=== PATIENT | male | born 1985 | race Caucasian/White ===

== ENCOUNTER 2020-12-25 12:50 | Emergency (ER) | payer OTHER ==
--- OUTSIDE RECORDS SUMMARY | 2020-12-25 12:52 | XMS REPORT | Continuity of Care Document ---
:1985 Author Organization [facility] t Address 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 Social History Social Habit Start Date Stop Date Quantity Comments Source Cigarettes smoked 2018-02-18 2018-02-18 Chaka Pinedo current (pack per 00:00:00 00:00:00 day) - Reported Tobacco use and 2018-02-18 2018-02-18 Never used [facility] ethodist exposure 00:00:00 00:00:00 Alcohol intake 2018-02-18 2018-02-18 Current drinker [place] [facility] 00:00:00 00:00:00 of alcohol (finding) Alcohol Comment 2018-02-18 2018-02-18 socially [facility] ethodist 00:00:00 00:00:00 Sex [birth year] [facility] ethodist 00:00:00 00:00:00 Smoking Status Start Date Stop Date Source Current every day smoker 2018-02-18 00:00:00 Madisyn Pinedo Medications Ordered Filled Start Stop Current Ordering Indication Dosage Frequency Signature Comments Components Source Medication Medication Date Date Medication? Clinician (SIG) Name Name ALPRAZolam Yes TK 1 T PO Richard braun (XANAX) 0.5 5-03 BID. [facility] MG tablet 00:00: st 00 eszopiclone Yes TK 1 T PO [place] (LUNESTA) 3 5-03 QD [facility] mg tablet 00:00: IMMEDIATEL st 00 Y BEFORE BEDTIME. ibuprofen Yes TK 1 T Albertina acosta (ADVIL,MOTR 5-03 WITH FOOD Met rochellei IN) 800 MG 00:00: OR MILK st tablet 00 TID PRN PARoxetine Yes TK 1 T PO Richard braun (PAXIL) 10 4-11 D [facility] MG tablet 00:00: st 00 Procedures This patient has no known procedures. Plan of Care Planned Activity Planned Date Details Comments Source Future Scheduled 2020-04-22 INFLUENZA VACCINE Albertina acosta [facility] Test 00:00:00 [code = INFLUENZA VACCINE] Future Scheduled 2002 Hepatitis C Null Met [facility] Test 00:00:00 screening (procedure) [code = 643181797] Future Scheduled 2000 COVID-19 VACCINE (1) Madisyn rodriguez [facility] Test 00:00:00 [code = COVID-19 VACCINE (1)] Encounters Start End Encounter Admission Attending Care Care Encounter Source Date/Time Date/Time Type Type Clinicians Facility Department ID 2020-12-12 2020-12-12 [facility] Radiology [facility] [id number] 14:34:43 23:59:00 Encounter [place] [id number] [place] [id number] [place] [id number] 2020-01-20 2020-01-20 [facility] Radiology [facility] [id number] 08:38:00 23:59:00 Encounter [place] [id number] [place] [id number] [place] [id number] Results This patient has no known results.
[2020-12-25 16:43] LABS: Absolute Lymphocytes (CBC) 1.2 K/uL (0.7-4.9); Basophils % 0.3 % (0-1.3); Hematocrit 39.4 % (39.6-49.0); Lymphocytes % 11.1 % (15.3-44.8); MPV 9.7 fL (7.6-11.3); RBC Red Blood Cell Count 4.44 M/uL (4.33-5.43)
[2020-12-25] MEDS ORDERED: LIDOCAINE VISCOUS 2% SOLN 15 ML UDC ONE ×2 (16:46→17:55)
[2020-12-25] MEDS ORDERED: MAGNES/ALUMIN/SIMET 30ML UCUP ONE ×2 (16:46→17:54)
[2020-12-25 16:56] LABS: ALT/SGPT 16 U/L (12-78); AST/SGOT 8 U/L (15-37); Albumin 3.4 g/dL (3.4-5.0); Alkaline Phosphatase 82 U/L (45-117); BUN Blood Urea Nitrogen 8 mg/dL (7-18); Bicarbonate 29 mmol/L (21-32); Bilirubin Direct 0.1 mg/dL (0-0.2); Bilirubin Total 0.4 mg/dL (0.2-1.0); Glucose Level 93 mg/dL (74-106); Lipase 49 U/L (73-393); Potassium 4.1 mmol/L (3.5-5.1); Protein, Total 6.6 g/dL (6.4-8.2); Sodium Level 142 mmol/L (136-145)
--- NOTE | 2020-12-25 17:05 | RAD REPORT ---
EXAM DESCRIPTION: CTAbdomen Pelvis W Contrast - 12/25/2020 4:39 pm CLINICAL HISTORY: Abdominal pain. ABD PAIN COMPARISON: No comparisons TECHNIQUE: Biphasic CT imaging of the abdomen and pelvis was performed with 100 ml non-ionic IV cont rast. All CT scans are performed using dose optimization technique as appropriate and may include automated exposure control or mA/KV adjustment according to patient size. FINDINGS: The lung bases are clear. The liver, spleen, pancreas, adrenal glands and kidneys are within normal limits. No bowel obstruction, free air, free fluid or abscess. Mucosal thickening is seen involving the colon suggesting possible colitis. The appendix is not identified as a discrete structure, however, no sec ondary findings of appendicitis are identified. No evidence of significant lymphadenopathy. No suspicious bony findings. IMPRESSION: Mild to moderate colitis pattern is seen.
--- NOTE | 2020-12-25 17:17 | ER ---
Nurse's Notes [facility] Name: Hany Posey Age: 35 yrs Sex: Male : 1985 Arrival Date: 12/25/2020 Time: 12:53 Bed 18 Private MD: Gurpreet Perera T Diagnosis: Infectious gastroenteritis and colitis, unspecified Presentation: 12/25 13:06 Chief complaint: Patient states: Epigastric pain since Friday. Some nausea. Had to ll1 leave work early today, he just didn't feel good enough to work. No fever. Coronavirus screen: Client denies travel out of the [place] in the last 14 days. At this time, the client does not indicate any symptoms associated with coronavirus-19. Ebola Screen: Patient denies travel to an Ebola-affected area in the 21 days before illness onset. Initial Sepsis Screen: Does the patient meet any 2 criteria? No. Patient's initial sepsis screen is negative. Does the patient have a suspected source of infection? Yes: Acute abdominal pain. Risk Assessment: Do you want to hurt yourself or someone else? Patient reports no desire to harm self or others. Onset of symptoms was December 23, 2020. 13:06 Method Of Arrival: Ambulatory ll1 13:06 Acuity: MICHAELA 3 ll1 Triage Assessment: 19:08 General: Appears in no apparent distress. Behavior is calm, cooperative, appropriate bw for age. Historical: - Allergies: 13:09 No Known Allergies; ll1 - PMHx: 13:09 [facility]; ll1 - PSHx: 13:09 shoulder sx; ll1 - Immunization history:: Flu vaccine is not up to date. - Social history:: Smoking status: Patient reports the use of cigarette tobacco products, smokes one-half pack cigarettes per day. - Family history:: not pertinent. - Hospitalizations: : No recent hospitalization is reported. Screenin:14 Abuse screen: Denies threats or abuse. Nutritional screening: No deficits noted. bw Tuberculosis screening: No symptoms or risk factors identified. Fall Risk None identified. Assessment: 16:12 Pain: Complains of pain in abdomen. Neuro: No deficits noted. Cardiovascular: No bw deficits noted. Respiratory: No deficits noted. GI: Bowel sounds present X 4 quads. Abd is soft and non tender X 4 quads. : No deficits noted. EENT: No deficits noted. Derm: No deficits noted. Musculoskeletal: No deficits noted. 18:02 Reassessment: DC pending IV medication administration. bw 18:56 Reassessment: Patient appears in no apparent distress at this time. Patient and/or bw family updated on plan of care and expected duration. Pain level reassessed. Patient is alert, oriented x 3, equal unlabored respirations, skin warm/dry/pink. Vital Signs: 13:06 BP 144 / 84; Pulse 76; Resp 17; Temp 98.3; Pulse Ox 98% ; Weight 81.65 kg; Height 6 ft. ll1 3 in. (190.50 cm); Pain 6/10; 16:14 BP 134 / 85; Pulse 70; Resp 18; Pulse Ox 99% on R/A; bw 18:02 BP 132 / 89; Pulse 74; Resp 18; Pulse Ox 99% on R/A; bw 13:06 Body Mass Index 22.50 (81.65 kg, 190.50 cm) ll1 ED Course: 12:53 Patient arrived in ED. mr 13:03 Gurpreet Perera MD is Private Physician. mr 13:08 Triage completed. ll1 13:09 Arm band placed on Patient notified of wait time. ll1 15:56 Israel Carson MD is Attending Physician. rn 16:12 Patricia Ortiz RN is Primary Nurse. bw 16:14 Patient has correct armband on for positive identification. Bed in low position. Call bw light in reach. Side rails up X 1. Pulse ox on. NIBP on. Warm blanket given. 16:14 No provider procedures requiring assistance completed. bw 16:38 CT Abd/Pelvis - IV Contrast Only In Process Unspecified. EDMS 17:16 Matthias Sullivan MD is Referral Physician. rn 18:02 Inserted saline lock: 20 gauge in right antecubital area, using aseptic technique. bw 19:07 IV discontinued. bw Administered Medications: 17:45 Drug: Cipro (ciprofloxacin) 400 mg Volume: 200 ml; Route: IVPB; Infused Over: 60 mins; iw Site: right antecubital; 18:46 Follow up: Response: No adverse reaction; IV Status: Completed infusion; IV Intake: sv 200ml 17:45 Drug: Flagyl 500 mg Volume: 100 ml; Route: IVPB; Rate: 200 ml/hr; Infused Over: 30 iw mins; Site: right antecubital; 18:46 Follow up: Response: No adverse reaction; IV Status: Completed infusion; IV Intake: sv 100ml 17:55 Drug: GI Cocktail without - (Maalox Suspension 30 ml, Lidocaine Liquid 2 % 15 bw ml) Route: PO; Intake: 18:46 IV: 100ml; Total: 100ml. sv 18:46 IV: 200ml; Total: 300ml. sv Outcome: 17:16 Discharge ordered by . rn 19:07 Discharged to home ambulatory. 19:07 Condition: stable 19:07 Discharge instructions given to patient, Prescriptions given X 4. 19:08 Patient left the ED. Signatures: Dispatcher [employer] EDBrigid Casas, RN RN Onelia Wall Irene RN ANDREY Israel Carson MD MD rn Lewis, Lynsay, RN RN [facility] Patricia Ortiz RN RN
--- NOTE | 2020-12-25 17:17 | EDPHYS ---
Physician Documentation [facility] Name: Hany Posey Age: 35 yrs Sex: Male : 1985 Arrival Date: 12/25/2020 Time: 12:53 Bed 18 Private MD: Gurpreet Perera T ED Physician Israel Carson HPI: 12/25 16:08 This 35 yrs old Male presents to ER via Ambulatory with complaints of rn Abdominal Pain. 16:08 The patient presents with abdominal pain in the epigastric area. Onset: The rn symptoms/episode began/occurred 2 day(s) ago. The symptoms do not radiate. Associated signs and symptoms: Pertinent positives: nausea, Pertinent negatives: anorexia, blood in stools, diarrhea, dysuria, fever, shortness of breath, testicular pain, vomiting, vomiting blood. The symptoms are described as achy, crampy. Modifying factors: The symptoms are alleviated by nothing, the symptoms are aggravated by touching the area. Severity of pain: At its worst the pain was moderate in the emergency department the pain has improved. The patient has not experienced similar symptoms in the past. The patient has not recently seen a physician. 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 - Social history:: Smoking status: Patient reports the use of cigarette tobacco products, smokes one-half pack cigarettes per day. - Family history:: not pertinent. - Hospitalizations: : No recent hospitalization is reported. ROS: 16:08 Constitutional: Negative for fever, chills, and weight loss, Eyes: Negative for injury, rn pain, redness, and discharge, Neck: Negative for injury, pain, and swelling, Cardiovascular: Negative for chest pain, palpitations, and edema, Respiratory: Negative for shortness of breath, cough, wheezing, and pleuritic chest pain, Abdomen/GI: + abd pain and nausea Back: Negative for injury and pain, MS/Extremity: Negative for injury and deformity, Skin: Negative for injury, rash, and discoloration, Neuro: Negative for headache, weakness, numbness, tingling, and seizure. 16:08 All other systems are negative. Exam: 16:08 Constitutional: This is a well developed, well nourished patient who is awake, alert, rn and in no acute distress. Head/Face: Normocephalic, atraumatic. Eyes: Conjunctiva and sclera are non-icteric and not injected.Periorbital areas with no swelling, redness, or edema. Cardiovascular: Regular rate and rhythm. No pulse deficits. Respiratory: No increased work of breathing, no retractions or nasal flaring. Abdomen/GI: soft, + epigastric tenderness, no rebound, neg rodriguez Skin: Warm, dry MS/ Extremity: Pulses equal, no cyanosis. Neuro: Awake and alert, GCS 15 Vital Signs: 13:06 BP 144 / 84; Pulse 76; Resp 17; Temp 98.3; Pulse Ox 98% ; Weight 81.65 kg; Height 6 ft. ll1 3 in. (190.50 cm); Pain 6/10; 16:14 BP 134 / 85; Pulse 70; Resp 18; Pulse Ox 99% on R/A; bw 18:02 BP 132 / 89; Pulse 74; Resp 18; Pulse Ox 99% on R/A; bw 13:06 Body Mass Index 22.50 (81.65 kg, 190.50 cm) ll1 MDM: 15:56 Patient medically screened. rn 17:15 Differential diagnosis: cholecystitis, Cholelithiasis, diverticulitis, gastritis, rn gastroesophageal reflux disease, pancreatitis, Peptic Ulcer Disease. Data reviewed: vital signs, nurses notes, lab test result(s), radiologic studies, CT scan, and as a result, I will discharge patient. Counseling: I had a detailed discussion with the patient and/or guardian regarding: the historical points, exam findings, and any diagnostic results supporting the discharge/admit diagnosis, lab results, radiology results, the need for outpatient follow up, to return to the emergency department if symptoms worsen or persist or if there are any questions or concerns that arise at home. Response to treatment: the patient's symptoms have markedly improved after treatment, and as a result, I will discharge patient. Special discussion: Based on the patient's Hx, exam, and Dx evaluation, there is no indication for emergent surgery or inpatient Tx. It is understood by the patient/guardian that if the Sx's persist or worsen they need to return immediately for re-evaluation. I discussed with the patient/guardian in detail that at this point there is no indication for admission to the hospital. It is understood, however, that if the symptoms persist or worsen the patient needs to return immediately for re-evaluation. 12/25 16:08 Order name: Basic Metabolic Panel; Complete Time: 16:58 rn 12/25 16:08 Order name: CBC with Diff; Complete Time: 16:56 rn 12/25 16:08 Order name: Hepatic Function; Complete Time: 16:58 rn 12/25 16:08 Order name: Lipase; Complete Time: 16:58 rn 12/25 16:08 Order name: CT Abd/Pelvis - IV Contrast Only; Complete Time: 17:07 rn 12/25 16:08 Order name: IV Saline Lock; Complete Time: 16:16 rn 12/25 16:08 Order name: Labs collected and sent; Complete Time: 16:16 rn Administered Medications: 17:45 Drug: Cipro (ciprofloxacin) 400 mg Volume: 200 ml; Route: IVPB; Infused Over: 60 mins; iw Site: right antecubital; 18:46 Follow up: Response: No adverse reaction; IV Status: Completed infusion; IV Intake: sv 200ml 17:45 Drug: Flagyl 500 mg Volume: 100 ml; Route: IVPB; Rate: 200 ml/hr; Infused Over: 30 iw mins; Site: right antecubital; 18:46 Follow up: Response: No adverse reaction; IV Status: Completed infusion; IV Intake: sv 100ml 17:55 Drug: GI Cocktail without - (Maalox Suspension 30 ml, Lidocaine Liquid 2 % 15 bw ml) Route: PO; Disposition: 12/25/20 17:16 Discharged to Home. Impression: Infectious gastroenteritis and colitis, unspecified. - Condition is Stable. - Discharge Instructions: Colitis. - Prescriptions for Zofran ODT 4 mg Oral tablet,disintegrating - place 1 tablet by TRANSLINGUAL route every 8 hours As needed; 20 tablet. Bentyl 20 mg Oral Tablet - take 1 tablet by ORAL route every 6 hours As needed; 20 tablet. Flagyl 500 mg Oral Tablet - take 1 tablet by ORAL route every 8 hours for 10 days; 30 tablet. Cipro 500 mg Oral Tablet - take 1 tablet by ORAL route every 12 hours for 10 days; 20 tablet. - Medication Reconciliation Form, Thank You Letter, Antibiotic Education, Prescription Opioid Use form. - Follow up: Matthias Sullivan MD; When: As needed; Reason: Recheck today's complaints, Re-evaluation by your physician. - Problem is new. - Symptoms have improved. Signatures: Dispatcher [employer] Niecy Espinoza, RN RN Israel Diallo MD MD rn Lewis, ANDREY Ward RN ll1 Ortiz, ANDREY Gomez RN Nga, Brigid BALDERAS Corrections: (The following items were deleted from the chart) 19:08 17:16 12/25/2020 17:16 Discharged to Home. Impression: Infectious gastroenteritis and bw colitis, unspecified. Condition is Stable. Forms are Medication Reconciliation Form, Thank You Letter, Antibiotic Education, Prescription Opioid Use. Follow up: Matthias Sullivan; When: As needed; Reason: Recheck today's complaints, Re-evaluation by your physician. Problem is new. Symptoms have improved. rn
[2020-12-25] MEDS ORDERED: METRONIDAZOLE 500mg IVPB 500 MG/100 ML BAG IV ONE (17:55)
[2020-12-25] MEDS ORDERED: CIPROFLOXACIN 400mg IV 400 MG/200 ML BAG IV ONE (17:55)
== END 2020-12-25 19:08 | disposition home or self-care (01) ==
LOC: ER 12:50
DX: A09 Infectious gastroenteritis and colitis, unspecified (principal); F17.210 Nicotine dependence, cigarettes, uncomplicated; M19.011 Primary osteoarthritis, right shoulder; M19.012 Primary osteoarthritis, left shoulder
CPT/HCPCS: 85025; 80048; 36415; 82565; 80076; 83690; 74177; Q9967; J0744; 96365; 96368; 99284